=== PATIENT | female | born 1950 | race Caucasian/White ===

== ENCOUNTER → 2016-06-30 | Outpatient (CLI) | payer MEDICARE, OTHER ==
[~2016-06-30] MED LIST: ASA OR; CENTRUM SILVER OR; CIPR500T19 OR; FLAG500T OR; GLUCOSAMINE CHON OR; LIPOFLAVONOID; LUTEIN OR; PREMARIN OR; REFRESH TEARS OU; RESTASIS OU; SYNTHROID OR; ZETIA OR; [UNRECOGNIZED DRUG - MIXTURE] OR
--- NOTE | 2016-06-30 11:21 | REP ---
Urinary tract sonogram: History: Followup cyst. Comparison: September 19, 2014. Findings: Scanning at the level of the urinary bladder shows no abnormality. Pre void bladder volume is calculated at 478 ml. 810 ml, 2% postvoid residual is observed. Renal cortical echogenicity pattern is normal bilaterally and contours are smooth. There is no evidence of hydronephrosis, mass, or calculus in either kidney. There is a 0.9 cm cyst at the lower pole of the left kidney. This is unchanged from the comparison study although it was labeled upper pole previously. No other cyst or mass is seen. The right kidney measures 11.0 x 5.3 x 4.4 cm. Left renal dimensions are 11.4 x 4.8 x 4.2 cm. Impression: 0.9 cm left renal cyst, stable, otherwise negative urinary tract sonography. Signed by Rolando Patel MD 06/30/2016 11:13 A
== END | disposition home or self-care (01) ==
LOC: M RAD 09:30
PROVIDERS: ATTEND Physician Assistant Medical
DX: N28.1 Cyst of kidney, acquired (principal)

== ENCOUNTER 2017-01-16 05:55 | Emergency (ER) | payer MEDICARE, OTHER ==
[~2017-01-16] VITALS: Ht 165.1 cm; Wt 66.8 kg
[2017-01-16] MEDS ORDERED: ONDANSETRON 4 MG ORAL DISINTEGRATING TAB (S0181) PO ONE (06:30)
[2017-01-16] MEDS ORDERED: traMADol 50 MG TAB PO ONE (06:30)
[2017-01-16] MEDS ORDERED: TRAM50TA2 PO (07:27)
[2017-01-16] MEDS ORDERED: ZOFR4TAB3 PO (07:27)
[2017-01-16] MEDS ORDERED: VALI5TAB PO (07:27)
[2017-01-16 07:35] VITALS: BP 180/89
== END 2017-01-16 07:37 | disposition home or self-care (01) ==
LOC: M ED 05:55
DX: S29.012A Strain of muscle and tendon of back wall of thorax, initial encounter (principal); X58.XXXA Exposure to other specified factors, initial encounter; Y92.89 Other specified places as the place of occurrence of the external cause; Y93.89 Activity, other specified; Y99.8 Other external cause status; M62.830 Muscle spasm of back; E07.9 Disorder of thyroid, unspecified; Z88.2 Allergy status to sulfonamides; Z88.8 Allergy status to other drugs, medicaments and biological substances; Z79.899 Other long term (current) drug therapy
CPT/HCPCS: 96372; 99282; J3360

== ENCOUNTER → 2017-02-15 | Outpatient (CLI) | payer MEDICARE, OTHER ==
[~2017-02-15] MED LIST changes: +TRAM50TA2 PO; +VALI5TAB PO; +ZOFR4TAB3 PO
--- NOTE | 2017-02-17 09:55 | DEXA ---
AP SPINE L1 - L4 1.067 -1.0 0.6 LT FEMUR TOTAL 0.896 -0.9 0.3 RT FEMUR TOTAL 0.786 -1.8 -0.5 TOTAL BODY TOTAL OTHER DUAL FEMUR FRAX* ASSESSMENT Risk factors: Not performed. 10 year probability of fracture Major osteoporotic fracture % Hip fracture % COMMENTS: There is low bone density of the spine and hips. The increased density of the spine does represent a significant change. The decreased density of the left hip does not represent a significant change. The decreased density of the right hip does not represent a significant change. The density of the spine has increased 7.3% since the initial exam on 2000. The spine density has increased 3.5% since the most recent exam on 01/08/2015. The density of the left hip has increased 3.9% since the initial exam on 2000. The density of the left hip has decreased 0.4% since the most recent exam on . The density of the right hip has decreased 3.6% since the initial exam on 2000. The density of the right hip has decreased 1.8% since the most recent exam on . FOLLOW-UP: Recommendation for the next bone density exam: 2 years. AMBROCIO
== END ==
LOC: M WHC 09:42
PROVIDERS: ATTEND Internal Medicine Endocrinology, Diabetes & Metabolism
DX: Z01.419 Encounter for gynecological examination (general) (routine) without abnormal findings (principal); M85.89 Other specified disorders of bone density and structure, multiple sites; Z12.12 Encounter for screening for malignant neoplasm of rectum; Z12.31 Encounter for screening mammogram for malignant neoplasm of breast; Z78.0 Asymptomatic menopausal state; Z92.89 Personal history of other medical treatment; Z92.23 Personal history of estrogen therapy
CPT/HCPCS: 77080; 82270; G0101; G0202

== ENCOUNTER → 2017-02-15 | Outpatient (CLI) | payer MEDICARE, OTHER ==
--- NOTE | 2017-02-15 11:04 | REPMRS ---
Patient History The patient states she had a clinical breast exam in 01/2017. Patient is postmenopausal. Family history of breast cancer in paternal aunt and breast cancer in paternal grandmother. Benign radio exam breast specimen of the right breast, January 08, 2013. Benign stereotatic loc for ea lesion of the right breast, January 08, 2013. Taking estrogen for 16 years. Digital Woman Screen Mammo: February 15, 2017 - Exam #: [id number] Bilateral CC and MLO view(s) were taken. Technologist: Emeli Larkin, Technologist Prior study comparison: February 16, 2016, digital woman screen mammo performed at [facility]. January 08, 2015, digital woman screen mammo performed at [facility]. FINDINGS: The breast tissue is heterogeneously dense. This may lower the sensitivity of mammography. There is a fairly symmetric fibroglandular pattern in both breasts. There has been no interval development of masses, areas of architectural distortion or clusters of microcalcifications typical of malignancy. No significant changes when compared with prior studies. ASSESSMENT: BI-RADS/ACR category 2 mammogram. Benign finding(s). Recommendation Routine screening mammogram of both breasts in 1 year (for women over age 40). This mammogram was interpreted with the aid of an FDA-approved computer-aided dectection system. This patient's Lifetime Breast Cancer RIsk is estimated at 22.8%. I WOULD THEREFORE RECOMMEND BILATERAL BREAST MRI. Electronically Signed By: Mario Montague MD 02/15/17 [id number]
== END ==
LOC: M WHC 09:11
PROVIDERS: ATTEND Nurse Practitioner Women's Health
DX: Z12.31 Encounter for screening mammogram for malignant neoplasm of breast (principal); Z78.0 Asymptomatic menopausal state; Z92.89 Personal history of other medical treatment; Z92.23 Personal history of estrogen therapy

== ENCOUNTER 2017-10-09 17:44 | Inpatient (IN) | payer MEDICARE, OTHER ==
[2017-10-09 18:45] LABS: BASO % 0.3 % (0.0-1.0); EOS # 0.2 10^3/uL (0.0-0.50); EOS % 2.4 % (0.0-3.0); HEMATOCRIT 39.3 % (36.0-47.0); HEMOGLOBIN 13.2 g/dl (12.0-15.5); IMMATURE GRANULOCYTE % 0.4 % (0-3.0); LYMPH # 1.1 10^3/uL (1.5-4.5); LYMPH % 13.8 % (24.0-44.0); MEAN CORPUSCULAR HEMOGLOBIN 28.9 pg (27.0-33.0); MEAN CORPUSCULAR HGB CONC 33.6 g/dl (32.0-36.5); MONO # 0.9 10^3/uL (0.0-0.8); MONO % 11.2 % (0.0-5.0); NEUTROPHILS # 5.6 10^3/uL (1.8-7.7); NEUTROPHILS % 71.9 % (36.0-66.0); PLATELET COUNT, AUTOMATED 258 10^3/uL (150-450); RED BLOOD COUNT 4.57 10^6/uL (4.00-5.40); RED CELL DISTRIBUTION WIDTH 12.6 % (11.5-14.5); WHITE BLOOD COUNT 7.8 10^3/uL (4.0-10.0)
[2017-10-09] MEDS: NS 1,000 ML IV (18:49)
[2017-10-09] MEDS: PIPERACILLIN/TAZOBACTAM SOD 3.375 GM in D5W MINI-BAG PLUS 50 ML IV (18:49)
[2017-10-09 18:54] LABS: INR 0.99; PROTHROMBIN TIME 13.2 SECONDS (12.4-14.5)
[2017-10-09 18:55] LABS: PARTIAL THROMBOPLASTIN TIME 37.5 SECONDS (26.8-37.9)
[2017-10-09 19:13] LABS: ALBUMIN 3.7 GM/DL (3.2-5.2); ALBUMIN/GLOBULIN RATIO 0.93 (1.00-1.93); ALKALINE PHOSPHATASE 120 U/L (45-117); ALT/SGPT 51 U/L (12-78); AMYLASE 66 U/L (25-115); ANION GAP 9 MEQ/L (8-16); AST/SGOT 33 U/L (7-37); BILIRUBIN,DIRECT 0.2 MG/DL (0.0-0.2); BILIRUBIN,TOTAL 0.6 MG/DL (0.2-1.0); BLOOD UREA NITROGEN 8 MG/DL (7-18); CALCIUM LEVEL 8.6 MG/DL (8.8-10.2); CARBON DIOXIDE LEVEL 26 MEQ/L (21-32); CHLORIDE LEVEL 107 MEQ/L (98-107); CK-MB VALUE MASS 1.3 NG/ML (<3.6); CPK CREATINE PHOSPHOKINASE 72 U/L (26-192); CREATININE FOR GFR 0.82 MG/DL (0.55-1.30); GLOMERULAR FILTRATION RATE > 60.0 (>45); GLUCOSE, FASTING 91 MG/DL (70-100); LIPASE 861 U/L (73-393); POTASSIUM SERUM 3.8 MEQ/L (3.5-5.1); SODIUM LEVEL 142 MEQ/L (136-145); TOTAL PROTEIN 7.7 GM/DL (6.4-8.2); TROPONIN I < 0.02 NG/ML (< 0.10)
[2017-10-09 19:15] LABS: LACTIC ACID SEPSIS PROTOCOL 0.9 MMOL/L (0.4-2.0)
[2017-10-09 19:33] LABS: KETONE, URINE AUTO RFX NEGATIVE (NEGATIVE); LEUKOCYTE ESTERASE UR AUTO RFX NEGATIVE (NEGATIVE); NITRITE, URINE AUTO RFX NEGATIVE (NEGATIVE); RBC, URINE AUTO RFX 4 /HPF (0-3); SPECIFIC GRAVITY UR AUTO RFX 1.026 (1.002-1.035); SQUAM EPITHELIAL CELL UR AURFX 1 /HPF (0-6); WBC, URINE AUTO RFX 1 /HPF (0-3)
[2017-10-09] MEDS: KCL 20MEQ IN D5/0.45NS 1000ML 1,000 ML IV ×2 (20:41→23:00)
[2017-10-09] MEDS ORDERED: FLUTICASONE PROP 0.05% NASAL SPRAY 16 GM (FLONASE) (20:45)
[2017-10-09] MEDS ORDERED: ONDANSETRON 4MG/2ML VIAL (J2405) IV (20:45)
[2017-10-09] MEDS ORDERED: KETOROLAC 30 MG/ML VIAL (J1885) IV (20:45)
[2017-10-09] MEDS ORDERED: MORPHINE 4 MG/ML 1ML VIAL/SYRINGE (J2270) IV (20:45)
[2017-10-09] MEDS: SENOKOT S TAB PO (21:00)
[2017-10-10] MEDS: PIPERACILLIN/TAZOBACTAM SOD 3.375 GM in D5W MINI-BAG PLUS 50 ML IV ×2 (00:51→06:17)
[2017-10-10] MEDS: LEVOTHYROXINE 125MCG TABLET (0.125MG) PO (06:00)
[2017-10-10] MEDS: HEPARIN SOD (PORCINE) 5000 UNITS/ML VIAL SC (06:00)
[2017-10-10 08:05] LABS: HEMOGLOBIN 12.2 g/dl (12.0-15.5); MEAN CORPUSCULAR HEMOGLOBIN 29.3 pg (27.0-33.0); MEAN CORPUSCULAR HGB CONC 33.9 g/dl (32.0-36.5); MEAN CORPUSCULAR VOLUME 86.5 fl (80.0-96.0); PLATELET COUNT, AUTOMATED 243 10^3/uL (150-450); RED BLOOD COUNT 4.16 10^6/uL (4.00-5.40); RED CELL DISTRIBUTION WIDTH 12.5 % (11.5-14.5); WHITE BLOOD COUNT 5.7 10^3/uL (4.0-10.0)
[2017-10-10] MEDS: HYDROXYCHLOROQUINE 200 MG TAB PO ×2 (08:34→08:36)
[2017-10-10] MEDS: SENOKOT S TAB PO (08:34)
[2017-10-10] MEDS: PANTOPRAZOLE 40MG INJ (PROTONIX) (C9113) IV (08:34)
[2017-10-10 08:45] LABS: ANION GAP 7 MEQ/L (8-16); BLOOD UREA NITROGEN 6 MG/DL (7-18); CARBON DIOXIDE LEVEL 25 MEQ/L (21-32); CHLORIDE LEVEL 112 MEQ/L (98-107); CREATININE FOR GFR 0.81 MG/DL (0.55-1.30); GLOMERULAR FILTRATION RATE > 60.0 (>45); GLUCOSE, FASTING 98 MG/DL (70-100); POTASSIUM SERUM 3.9 MEQ/L (3.5-5.1); SODIUM LEVEL 144 MEQ/L (136-145)
[2017-10-11] MEDS ORDERED: LEVOTHYROXINE 137MCG TABLET (0.137MG) PO (06:00)
[2017-10-12] MEDS ORDERED: ASPIRIN 81 MG ENTERIC TAB PO (09:00)
== END 2017-10-10 11:51 | disposition home or self-care (01) | DRG 392 ==
LOC: M ED 17:44 → M ED INP 20:41 → M MS4PR 22:03
DX: K57.20 Diverticulitis of large intestine with perforation and abscess without bleeding (principal); E78.00 Pure hypercholesterolemia, unspecified; Z90.710 Acquired absence of both cervix and uterus; Z90.49 Acquired absence of other specified parts of digestive tract; Z79.899 Other long term (current) drug therapy

== ENCOUNTER → 2017-10-09 | Outpatient (CLI) | payer MEDICARE, OTHER ==
[~2017-10-09] MED LIST changes: -ASA OR; -CENTRUM SILVER OR; -CIPR500T19 OR; -FLAG500T OR; +GASTROGRAFIN SOLUTION 30ML (Q9963) As Ordered; -GLUCOSAMINE CHON OR; +ISOVUE-370 76% 100ML VIAL (Q9967) As Ordered; -LIPOFLAVONOID; -LUTEIN OR; -PREMARIN OR; -REFRESH TEARS OU; -RESTASIS OU; -SYNTHROID OR; -TRAM50TA2 PO; -VALI5TAB PO; -ZETIA OR; -ZOFR4TAB3 PO; -[UNRECOGNIZED DRUG - MIXTURE] OR
[2017-10-09 13:13] LABS: BASO % 0.3 % (0.0-1.0); EOS # 0.2 10^3/uL (0.0-0.50); EOS % 2.7 % (0.0-3.0); HEMATOCRIT 38.3 % (36.0-47.0); HEMOGLOBIN 12.7 g/dl (12.0-15.5); IMMATURE GRANULOCYTE % 0.4 % (0-3.0); LYMPH % 12.2 % (24.0-44.0); MEAN CORPUSCULAR HEMOGLOBIN 28.9 pg (27.0-33.0); MEAN CORPUSCULAR HGB CONC 33.2 g/dl (32.0-36.5); MONO # 0.8 10^3/uL (0.0-0.8); MONO % 9.6 % (0.0-5.0); NEUTROPHILS # 5.9 10^3/uL (1.8-7.7); NEUTROPHILS % 74.8 % (36.0-66.0); PLATELET COUNT, AUTOMATED 240 10^3/uL (150-450); RED CELL DISTRIBUTION WIDTH 12.6 % (11.5-14.5); WHITE BLOOD COUNT 7.8 10^3/uL (4.0-10.0)
[2017-10-09 13:46] LABS: ALBUMIN 3.4 GM/DL (3.2-5.2); ALBUMIN/GLOBULIN RATIO 0.97 (1.00-1.93); ALKALINE PHOSPHATASE 106 U/L (45-117); ALT/SGPT 43 U/L (12-78); AMYLASE 29 U/L (25-115); ANION GAP 5 MEQ/L (8-16); AST/SGOT 25 U/L (7-37); BILIRUBIN,TOTAL 0.7 MG/DL (0.2-1.0); BLOOD UREA NITROGEN 11 MG/DL (7-18); CALCIUM LEVEL 8.5 MG/DL (8.8-10.2); CARBON DIOXIDE LEVEL 27 MEQ/L (21-32); CHLORIDE LEVEL 110 MEQ/L (98-107); CREATININE FOR GFR 0.78 MG/DL (0.55-1.30); GLOMERULAR FILTRATION RATE > 60.0 (>45); GLUCOSE, FASTING 92 MG/DL (70-100); LIPASE 138 U/L (73-393); POTASSIUM SERUM 4.6 MEQ/L (3.5-5.1); SODIUM LEVEL 142 MEQ/L (136-145); TOTAL PROTEIN 6.9 GM/DL (6.4-8.2)
== END ==
LOC: M LAB 12:43
DX: K68.9 Other disorders of retroperitoneum (principal); R93.5 Abnormal findings on diagnostic imaging of other abdominal regions, including retroperitoneum; R10.32 Left lower quadrant pain; R10.31 Right lower quadrant pain; Z90.710 Acquired absence of both cervix and uterus; Z90.49 Acquired absence of other specified parts of digestive tract
CPT/HCPCS: Q9963

== ENCOUNTER → 2018-02-07 | Outpatient (CLI) | payer MEDICARE, OTHER | LOC: M RAD 09:36 | DX: R10.13 Epigastric pain (principal); R19.4 Change in bowel habit; K57.92 Diverticulitis of intestine, part unspecified, without perforation or abscess without bleeding | CPT/HCPCS: Q9963 ==

== ENCOUNTER → 2018-02-16 | Outpatient (CLI) | payer MEDICARE, OTHER | LOC: M WHC 09:46 | DX: Z12.31 Encounter for screening mammogram for malignant neoplasm of breast (principal); Z78.0 Asymptomatic menopausal state; Z92.89 Personal history of other medical treatment; Z92.23 Personal history of estrogen therapy | CPT/HCPCS: 77067 ==

== ENCOUNTER → 2019-02-18 | Outpatient (CLI) | payer MEDICARE, OTHER ==
[~2019-02-18] MED LIST changes: +ASA OR; +ASPI81TA26 PO; +CENTRUM SILVER OR; +CHOL1CAP2 PO; +CIPR1TAB20 PO; +CIPR500T19 OR; +CITRTAB18 PO; +CRAN125T PO; +CRAN400T3 PO; +ESTR3TA; +ESTR3TA PO; +FLAG500T OR; +FLAG500T PO; +FLON1SPR; -GASTROGRAFIN SOLUTION 30ML (Q9963) As Ordered; +GLUCOSAMINE CHON OR; +HYDR200T3; +HYDR200T3 PO; -ISOVUE-370 76% 100ML VIAL (Q9967) As Ordered; +LEVO125T4 PO; +LEVO137T2 PO; +LIPOFLAVONOID; +LUTE6TAB2 PO; +LUTEIN OR; +MEGA1CAP3 PO; +PLANTAB PO; +PREMARIN OR; +REFRESH TEARS OU; +REST0.05 OU; +RESTASIS OU; +SYNT137T7; +SYNTHROID OR; +TRAM50TA2 PO; +VALI5TAB PO; +VITA-121 PO; +ZETIA OR; +ZOFR4TAB14 PO; +[UNRECOGNIZED DRUG - MIXTURE] OR; +mega red
--- NOTE | 2019-02-18 11:17 | REPMRS ---
Patient History The patient states she had a clinical breast exam in 01/2019. Patient is postmenopausal. Family history of breast cancer in paternal grandmother, breast cancer in paternal aunt. Benign radio exam breast specimen of the right breast, January 08, 2013. Benign stereotatic loc for ea lesion of the right breast, January 08, 2013. Taking estrogen for 18 years. 3D TOMOSYNTHESIS WAS PERFORMED. The [facility] lifetime risk for breast cancer is 10.7%. Digital Woman Screen Mammo: February 18, 2019 - Exam #: [id number] Bilateral CC and MLO view(s) were taken. Technologist: Emeli Larkin, Technologist Prior study comparison: February 16, 2018, bilateral digital woman screen mammo performed at [facility]. February 15, 2017, digital woman screen mammo performed at [facility]. FINDINGS: The breast tissue is heterogeneously dense. This may lower the sensitivity of mammography. There has been no change in the appearance of the mammogram from the prior studies. There is a moderate amount of residual fibroglandular tissue which is fairly symmetric. There is no interval development of dominant mass, areas of architectural distortion, or clustered microcalcification typical of malignancy. Assessment: BI-RADS/ACR category 1 mammogram. Negative Mammogram. Recommendation Routine screening mammogram in 1 year (for women over age 40). This mammogram was interpreted with the aid of an FDA-approved computer-aided dectection system. Electronically Signed By: Mario Montague MD 02/18/19 [id number]
== END ==
LOC: M WHC 09:09
PROVIDERS: ATTEND Nurse Practitioner Women's Health
DX: Z12.31 Encounter for screening mammogram for malignant neoplasm of breast (principal); Z78.0 Asymptomatic menopausal state; Z86.018 Personal history of other benign neoplasm; Z92.23 Personal history of estrogen therapy

== ENCOUNTER → 2019-02-18 | Outpatient (CLI) | payer MEDICARE, OTHER ==
--- NOTE | 2019-02-19 14:52 | DEXA ---
AP SPINE L1 - L4 1.073 -1.0 0.6 LT FEMUR TOTAL 0.887 -1.0 0.4 LT NECK 0.854 -1.3 0.3 RT FEMUR TOTAL 0.785 -1.8 -0.4 RT NECK 0.744 -2.1 -0.5 TOTAL BODY TOTAL OTHER COMMENTS: There is low bone density of the spine and hips. The increased density of the spine does not represent significant change. The decreased density of the left hip does not represent a significant change. The decreased density of the right hip does not represent a significant change. The density of the spine is increased 7.9% since the initial exam on 12/25/2000. The spine density has increased 0.6% since the most recent exam on 02/15/2017. The density of the left hip has increased 2.9% since the initial exam on 12/25/2000. The density of the left hip has decreased 1.0% since the most recent exam on 02/15/2017. The density of the right hip has decreased 3.7% since the initial exam on 12/25/2000. The density of the right hip has decreased 0.1% since the most recent exam on 02/15/2017. FOLLOW-UP: Recommendation for the next bone density exam: 2 years. AMBROCIO
== END ==
LOC: M WHC 09:14
PROVIDERS: ATTEND Internal Medicine Endocrinology, Diabetes & Metabolism
DX: M85.89 Other specified disorders of bone density and structure, multiple sites (principal)
CPT/HCPCS: 77063; 77067; 77080; G0101

== ENCOUNTER → 2020-02-20 | Outpatient (CLI) | payer MEDICARE, OTHER ==
--- NOTE | 2020-02-25 12:01 | REP ---
BILATERAL SCREENING MAMMOGRAM WITH 3D TOMOSYNTHESIS HISTORY: Family history of breast cancer in paternal grandmother and paternal aunt. Tyrer-Cuzick lifetime risk of breast cancer 10.1%. Prior benign biopsy right breast January 08, 2013. COMPARISON: Mammogram 02/18/2019 as well as other prior exams. FINDINGS: MLO and CC views of both breasts performed with 3D tomosynthesis. Moderate fibroglandular tissue is present bilaterally. Volpara breast density is B. A new oval nodule is seen centrally in the right breast, somewhat posteriorly, measuring about 1 cm in diameter. It appears fairly smoothly marginated, and I suspect this represents a cyst. There is a dominant well defined nodule in the outer left breast posteriorly measuring about 2 cm in diameter which has increased since prior studies. There is a new well defined nodule medially in the left breast anteriorly 8 mm in diameter. I suspect there are two adjacent well defined left retroareolar nodules which appear stable. Again I suspect these all represent cysts. No clustered microcalcifications are seen bilaterally. Impression: ACR 0 incomplete. New nodule in the central posterior right breast which appears well defined. Recommend spot compression views and ultrasound to further evaluate. In the left breast, there is an increasing well defined nodule in the upper outer quadrant and a new nodule anteromedially. Recommend spot compression views and ultrasound to further evaluate. This mammogram was interpreted with the aid of an FDA approved computer aided detection system. The patient states her last clinical breast exam is February 2020. Send letter 0. MTDD
== END ==
LOC: M WHC 10:06
PROVIDERS: ATTEND Nurse Practitioner Women's Health
DX: Z01.419 Encounter for gynecological examination (general) (routine) without abnormal findings (principal); Z12.31 Encounter for screening mammogram for malignant neoplasm of breast; N63.15 Unspecified lump in the right breast, overlapping quadrants; N63.21 Unspecified lump in the left breast, upper outer quadrant
CPT/HCPCS: 77063; 77067; G0101

== ENCOUNTER → 2020-03-09 | Outpatient (CLI) | payer MEDICARE, OTHER ==
--- NOTE | 2020-03-12 16:34 | REP ---
INDICATION: ADDITIONAL VIEWS NIGEL BREAST. COMPARISON: 02/17/2008. 02/20/2020 as well as other prior exams. TECHNIQUE: Bilateral spot compression views are performed.Real-time sonographic evaluation of bilateral breasts performed. FINDINGS: The spot compression views confirm the presence of a new 1 cm nodule centrally in the right breast. On the left, there is also a confirmed an oval, relatively smooth marginated nodule posterolaterally in the left breast and an increasing 7-8 mm nodule anteriorly in the medial left breast. Ultrasound right breast about 5 cm behind the nipple demonstrates a simple cyst is seen centrally measuring 9 x 6 x 5 mm corresponding to the mammographic finding of a nodule at that location. This is benign. Sonographically, in the left breast posterolaterally about 6 cm from the nipple, the enlarging oval smoothly marginated nodule corresponds to a cyst with a thin internal septations measuring 1.5 x 0.8 x 1.7 cm. This is benign. Anteromedially, in the left breast at the site of the increasing 8 mm nodule, there is a simple cyst measuring 7 x 5 x 6 mm. IMPRESSION: BIRADS/ACR 2 benign. Bilateral spot compression views confirm the presence of a new central nodule in the right breast corresponding to a benign cyst. In the left breast posterolaterally, enlarging nodule corresponds to a benign cyst and an enlarging nodule anteromedially corresponds to a benign cyst. Recommend followup mammogram in 1 year. This mammogram was interpreted with the aid of an FDA-approved computer-aided detection system. The patient letter being requested is M1. RECOMMENDATION: Repeat screening mammography recommended 1 year (for women over 40). <Electronically signed by Mario Montague > 03/12/20 [id number]
== END ==
LOC: M WHC 09:02
PROVIDERS: ATTEND Nurse Practitioner Women's Health
DX: R92.2 Inconclusive mammogram (principal)

== ENCOUNTER → 2021-04-07 | Outpatient (CLI) | payer OTHER ==
--- NOTE | 2021-04-07 13:39 | REP ---
INDICATION: NIGEL SCR MAMMO Z12.31. COMPARISON: Multiple prior screening examinations, the most recent, 02/20/2020 TECHNIQUE: Digital screening (2D) mammography was performed bilaterally in the CC and MLO projections. Additionally, breast tomosynthesis (3D mammography) was performed bilaterally in the CC and MLO projections. FINDINGS: By history, the patient has no complaints of a palpable breast abnormality or other significant breast complaints. The Volpara volumetric breast density pattern is b, there are scattered areas of fibroglandular density. The isodense mass seen in the middle 3rd of the right breast, on the prior exam and the isodense mass seen in the posterior 3rd of the left breast, on the prior exam, both shown to be cysts at ultrasound, have undergone interval decrease in size. There are no new dominant masses. There are no suspicious calcifications or areas of architectural distortion. IMPRESSION: BIRADS/ACR 2: Benign finding. This patient's Tyrer-Cuzick lifetime breast cancer risk assessment score is 9.0%. This mammogram was interpreted with the aid of an FDA-approved computer-aided detection system. The patient states she had a clinical breast exam in March 2021. The patient letter being requested is M2. RECOMMENDATION: Repeat screening mammography recommended 1 year (for women over 40). <Electronically signed by Pilo Barr > 04/07/21 [id number]
== END ==
LOC: M WHC 09:33
PROVIDERS: ATTEND Nurse Practitioner Women's Health
DX: Z12.31 Encounter for screening mammogram for malignant neoplasm of breast (principal); M81.0 Age-related osteoporosis without current pathological fracture